=== PATIENT | male | born 1945 | race Caucasian/White ===

== ENCOUNTER → 2017-03-04 | Outpatient (CLI) | payer MEDICARE, BC ==
--- NOTE | 2017-03-04 13:24 | MR ---
EXAMINATION TYPE: MR knee RT wo con DATE OF EXAM: 03/04/2017 12:45 PM COMPARISON: None HISTORY: Right knee pain TECHNIQUE: Multiplanar, multisequence imaging of the right knee is performed without IV contrast. FINDINGS: MEDIAL MENISCUS: Complex tear posterior horn and body medial meniscus with pseudoextrusion LATERAL MENISCUS: Simple linear tear posterior horn lateral meniscus CRUCIATE LIGAMENTS: The anterior and posterior cruciate ligaments are intact and unremarkable. COLLATERAL LIGAMENTS: The medial collateral ligament and lateral collateral ligament complex are inta ct and unremarkable. EXTENSOR MECHANISM: Visualized quadriceps and patellar tendons are intact. EFFUSION: No significant suprapatellar joint effusion. POPLITEAL CYST: No popliteal/zamudio cyst. TRICOMPARTMENT SPACES: Narrowing of the joint space is seen with grade III chondromalacia involving t he patellar cartilage. No erosive changes. Hypertrophic spur involving the superior anterior margin o f the patella. BONE MARROW SIGNAL: No evidence of marrow edema or contusion. Reactive degenerative changes involving the patella. IMPRESSION: 1. Osteoarthritis with small suprapatellar or small fluid collection. 2. Complex tear posterior horn and body medial meniscus. 3. simple linear tear posterior horn lateral meniscus. 4. chondromalacia patellar cartilage
== END | disposition home or self-care (01) ==
LOC: RADMRIMAIN 12:01
PROVIDERS: ATTEND Orthopaedic Surgery
DX: S83.231A Complex tear of medial meniscus, current injury, right knee, initial encounter (principal); S83.281A Other tear of lateral meniscus, current injury, right knee, initial encounter; M17.11 Unilateral primary osteoarthritis, right knee; M22.41 Chondromalacia patellae, right knee

== ENCOUNTER 2017-05-13 07:50 | Day surgery (SDC) | payer MEDICARE, BC ==
[2017-05-11 08:48] VITALS: BMI 37.3
--- NOTE | 2017-05-12 22:41 | HP ---
DATE OF SURGERY: 05/13/2017 Fred Cabrera is a 72-year-old patient who was seen with progressive right knee pain. We discussed options. He elected to proceed with right knee arthroscopy. Consent was obtained. PAST MEDICAL HISTORY: 1. Hypertension. 2. Hyperlipidemia. 3. Benign prostate hypertrophy. PAST SURGICAL HISTORY: Carotid endarterectomy. DAILY MEDICATIONS: 1. Atenolol. 2. Lovaza. 3. Simvastatin. 4. Flomax. 5. Multivitamin. ALLERGIES: NONE. SOCIAL HISTORY: Patient denies tobacco use. PHYSICAL EVALUATION OF THE RIGHT KNEE: Range of motion is zero to 120 degrees. Tenderness along the medial joint line. Positive medial Roseann's. There is crepitus along the medial compartment with range of motion. Ligaments stable. Hip rotation without pain. Distal neurovascular exam is intact. Right knee radiographs revealed moderated osteoarthritis. MRI of the right knee revealed medial and lateral meniscal tears as well as osteoarthritis. IMPRESSION: Internal derangement, right knee, with medial and lateral meniscal tears. PLAN: Right knee arthroscopy with partial medial meniscectomy, partial lateral meniscectomy and debridement. KENNY
[~2017-05-13 07:50] MED LIST: FAMOTIDINE 20 MG/2 ML VIAL IV PRN; HYDROmorphone 1 MG/ML 1 ML SYRINGE IVP PRN; LACTATED RINGERS 1,000 ML IV SCH; LIDOCAINE 1% 20 ML VIAL (10MG/ML) FOR IV START INTRADERMA PRN; ONDANSETRON 4 MG/2 ML VIAL IVP PRN; ceFAZolin 3 GM in SODIUM CHLORIDE 0.9% 100 ML IVPB ONE
[2017-05-13] MEDS ORDERED: DEXAMETHASONE SOD PHOS (MDV) 100 MG/10 ML VIAL IVP ONE (08:43)
[2017-05-13] MEDS ORDERED: LIDOCAINE 1% INJ 10MG/ML (20 ML MDV) ONE (09:56)
[2017-05-13] MEDS ORDERED: PROPOFOL 10 MG/ML 20 ML VIAL IV ONE (09:56)
[2017-05-13] MEDS ORDERED: MIDAZOLAM 2 MG/2 ML VIAL ONE (09:56)
[2017-05-13] MEDS ORDERED: SUCCINYLCHOLINE CHLORIDE VIAL 200 MG/10 ML VIAL IV ONE (09:56)
[2017-05-13] MEDS ORDERED: fentaNYL (PF) 50 MCG/ML 2 ML AMP ONE (09:56)
[2017-05-13] MEDS ORDERED: LACTATED RINGERS 1,000 ML IV ONE (10:35)
[2017-05-13] MEDS ORDERED: BUPIVACAINE (PF) 0.25% 30 ML VIAL INTRAARTIC ONE (11:07)
--- NOTE | 2017-05-13 11:26 | P.OP ---
Date of Procedure: 05/13/17 Preoperative Diagnosis: Internal derangement right knee Postoperative Diagnosis: 1. Tear medial and lateral meniscus right knee 2. Grade 2 chondromalacia patella right knee 3. Reactive synovitis medial and suprapatellar compartments right knee Procedure(s) Performed: 1. Arthroscopic partial medial and lateral meniscectomy right knee 2. Arthroscopic chondroplasty patella right knee 3. Arthroscopic partial synovectomy medial and suprapatellar compartments right knee Implants: Anesthesia: GETA, local Surgeon: Rashi Lopez Estimated Blood Loss (ml): 10 Pathology: none sent Condition: stable Disposition: PACU Indications for Procedure: 72-year-old patient seen with progressive right knee pain. After treatment options were discussed, he elected to proceed with arthroscopy. Operative Findings: see description of procedure Description of Procedure: Patient was taken to the operative suite. Patient underwent a general anesthetic by the department of anesthesia. Patient was given preoperative antibiotics. The right lower extremity was placed in a well-padded arthroscopic leg poole. The right leg was prepped and draped in the normal sterile orthopedic fashion. A lateral parapatellar and suprapatellar incision was made. Trochars were inserted. Arthroscopy was initiated. Suprapatellar pouch revealed thick reactive synovitis. The patellofemoral joint appeared to articulate congruently. There was grade 2 chondromalacia of the patella with some osteochondral tears present. The scope was guided into the medial gutter. No loose bodies or plica were identified. The scope was then guided into the medial compartment. A medial parapatellar incision was made. Trocar inserted followed by probe. There was a complex tear involving the posterior horn medial meniscus extending into midbody. Grade 1 chondral malacia changes of the medial compartment were present no osteochondral tears evident. There was thick reactive synovitis anteriorly. A partial medial meniscectomy was performed on a stable tissue. I performed a partial synovectomy down to stable tissue. The residual meniscus was stable. Scope and probe were then guided into the intercondylar notch. Cruciates were identified, probed and found to be stable. The scope and probe were then guided into lateral compartment. There was radial tearing lateral meniscus involving the midbody area. There were grade 1 chondromalacia changes lateral compartment with no osteochondral tears present. A partial lateral meniscectomy was performed on a stable tissue. The residual meniscus was stable. The scope was in guided back into the suprapatellar compartment. I introduced a motorized shaver into the super patellar compartment. I debrided some piecemeal fragments of meniscus I encountered. I performed a chondroplasty of the patella down to stable tissue followed by partial synovectomy. The residual osteochondral surface of patella appears stable. I took one more look on the entire knee, no residual debris. Instruments were now removed from the joint. The joint was infiltrated with .25 % Marcaine. Steri-Strips were applied to the portal sites. Sterile dressings were applied. The patient was placed into a DAVEY hose. No tourniquet was utilized. The patient was awakened, transferred to a bed and taken to recovery stable satisfactory condition.
[2017-05-13 11:38] VITALS: TEMP 96.9
[2017-05-13 12:33] VITALS: RESP 18
[2017-05-13] MEDS ORDERED: HYDROcodone/APAP 7.5-325MG 1 EACH TAB PO ONE (12:47)
[2017-05-13 13:23] VITALS: BP 112/73; PULSE 71
== END 2017-05-13 13:47 | disposition home or self-care (01) ==
LOC: OR 07:50
PROVIDERS: ATTEND Orthopaedic Surgery
DX: S83.281A Other tear of lateral meniscus, current injury, right knee, initial encounter (principal); M17.11 Unilateral primary osteoarthritis, right knee; S83.241A Other tear of medial meniscus, current injury, right knee, initial encounter; M22.41 Chondromalacia patellae, right knee; I48.1 Persistent atrial fibrillation; E78.2 Mixed hyperlipidemia; I10 Essential (primary) hypertension; Z98.890 Other specified postprocedural states; M65.9 Synovitis and tenosynovitis, unspecified; N40.0 Benign prostatic hyperplasia without lower urinary tract symptoms; Z79.899 Other long term (current) drug therapy; Z79.02 Long term (current) use of antithrombotics/antiplatelets; X58.XXXA Exposure to other specified factors, initial encounter; G47.30 Sleep apnea, unspecified; Z99.89 Dependence on other enabling machines and devices; E66.9 Obesity, unspecified; Z68.39 Body mass index [BMI] 39.0-39.9, adult
CPT/HCPCS: 29880; J2250; J0330; J0690; J2405; J2001; J3010; J1170; J1100; J2704

== ENCOUNTER 2020-02-18 17:34 | Inpatient (IN) | payer MEDICARE, BC ==
[2020-02-18] MEDS ORDERED: ACETAMINOPHEN TAB 500 MG TAB PO STA (18:24)
[2020-02-18] MEDS: SODIUM CHLORIDE 0.9% 500 ML 500 ML IV SCH ×2 (18:51→19:48)
[2020-02-18 19:03] LABS: Basophils # (A) 0.1 k/uL (0-0.2); Basophils % (A) 1 %; Eosinophils # (A) 0.2 k/uL (0-0.7); Eosinophils % (A) 2 %; HCT 47.4 % (39.0-53.0); HGB 15.2 gm/dL (13.0-17.5); Lymphocytes # (A) 0.9 k/uL (1.0-4.8); Lymphocytes % (A) 6 %; MCV 96.8 fL (80.0-100.0); Mean Platelet Volume 7.6; Monocytes # (A) 0.7 k/uL (0-1.0); Monocytes % (A) 5 %; Neutrophils # (A) 12.4 k/uL (1.3-7.7); Neutrophils % (A) 85 %; Platelet Count 292 k/uL (150-450); RDW 12.9 % (11.5-15.5); WBC 14.5 k/uL (3.8-10.6)
[2020-02-18 19:07] LABS: Albumin 4.4 g/dL (3.5-5.0); Calcium 9.7 mg/dL (8.4-10.2); Partial Thromboplastin Time 23.8 sec (22.0-30.0); Potassium 4.2 mmol/L (3.5-5.1); Prothrombin Time 10.6 sec (9.0-12.0); Total Bilirubin 0.7 mg/dL (0.2-1.3); Total Protein 7.8 g/dL (6.3-8.2)
--- NOTE | 2020-02-18 19:13 | XR ---
EXAMINATION TYPE: XR chest 1V portable DATE OF EXAM: 02/18/2020 HISTORY: Shortness of breath. COMPARISON: 10/25/2015 TECHNIQUE: Single view of the chest is submitted. Examination limited by degree of inspiration. FINDINGS: Demonstrated are scattered senescent parenchymal change. There is no evidence for focal infiltrate. The heart is stable. Hilar and mediastinal structures are within normal limits. Degenerative changes are seen of the dorsal spine. IMPRESSION: 1. Chronic changes without evidence for acute pulmonary disease.
--- NOTE | 2020-02-18 19:22 | ED ---
Fever HPI - General Chief Complaint: Fever Stated Complaint: shaky Time Seen by Provider: 02/18/20 18:11 Source: patient Mode of arrival: wheelchair Limitations: no limitations - History of Present Illness Initial Comments: 74-year-old male patient presents to the emergency department today for evaluation of shaking chills. Patient states that around 3:00 this afternoon he started shaking and feeling generally weak. Patient states when symptoms persi sted he presented here for further evaluation. He did have a fever in triage, patient did not know he had a fever. Patient states that he has been having frequency and urgency to urinate. He states that he has been having accidents with urination. States he does have prostate issues and does take Flomax but has never had these types of symptoms. He denies any hematuria or dysuria. Denies nausea, vomiting, abdominal pain, flank pain. Denies any cough or congestion. Patient denies any recent rash, chest pain, diarrhea, constipation, numbness, tingling, dizziness, weakness, headache, visual changes, or any other complaints. - Related Data Home Medications Medication Instructions Recorded Confirmed Atenolol [Tenormin] 25 mg PO BID 10/25/15 05/13/17 Multivitamins, Thera [Multivitamin 1 tab PO Q48H 10/25/15 05/13/17 (formulary)] Tamsulosin HCl [Flomax] 0.4 mg PO HS 10/26/15 05/13/17 Simvastatin [Zocor] 20 mg PO HS 11/27/15 05/13/17 Fenofibrate 160 mg PO DAILY 05/11/17 05/13/17 Previous Rx's Medication Instructions Recorded Apixaban [Eliquis] 5 mg PO BID #60 tab 10/27/15 HYDROcodone/APAP 7.5-325MG [Peck 1 each PO Q6HR PRN #30 tab 05/13/17 7.5] Allergies Allergy/AdvReac Type Severity Reaction Status Date / Time No Known Allergies Allergy Verified 02/18/20 18:00 Review of Systems ROS Statement: Those systems with pertinent positive or pertinent negative responses have been documented in the HPI. ROS Other: All systems not noted in ROS Statement are negative. 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, arthroscopy lt knee Past Anesthesia/Blood Transfusion Reactions: Postoperative Nausea & Vomiting (PONV) Past Psychological History: No Psychological Hx Reported Smoking Status: Never smoker Past Alcohol Use History: None Reported Past Drug Use History: None Reported - Past Family History Father Family Medical History: Cancer Additional Family Medical History / Comment(s): COLON CANCER Mother Family Medical History: Congestive Heart Failure (CHF) Brother(s) Family Medical History: Cancer Additional Family Medical History / Comment(s): throat cancer and Alzheimer's Sister(s) Additional Family Medical History / Comment(s): Alzheimer's General Exam Limitations: no limitations General appearance: alert, in no apparent distress, other (This is a well- developed, well-nourished elderly male patient in no acute distress. Vital signs upon presentation are temperature 1-2.8F, pulse 96, respirations 18, blood pressure 145/84, pulse ox 92% on room air) ENT exam: Present: normal exam, normal oropharynx, mucous membranes moist, TM's normal bilaterally Respiratory exam: Present: normal lung sounds bilaterally. Absent: respiratory distress, wheezes, rales, rhonchi, stridor Cardiovascular Exam: Present: regular rate, normal rhythm, normal heart sounds. Absent: systolic murmur, diastolic murmur, rubs, gallop, clicks GI/Abdominal exam: Present: soft, normal bowel sounds. Absent: distended, tenderness, guarding, rebound, rigid Back exam: Absent: CVA tenderness (R), CVA tenderness (L) Neurological exam: Present: alert, oriented X3, CN II-XII intact Psychiatric exam: Present: normal affect, normal mood Skin exam: Present: warm, dry, intact, normal color. Absent: rash Course Vital Signs 02/18/20 02/18/20 17:57 19:08 Temperature 102.8 F H Pulse Rate 96 112 H Respiratory 18 18 Rate Blood Pressure 145/84 129/85 O2 Sat by Pulse 92 L 95 Oximetry Procedures - [place] Protocol (Time Out) Nurse: Devi Carmona Medical Decision Making - Medical Decision Making 74 year-old male patient presents to the emergency department today for evaluation of shaking, chills, weakness. Also reporting urinary urgency and frequency. Physical examination revealed clear equal lung sounds. Abdomen soft and nontender. No CVA tenderness. EKG showed A. fib with RVR. Labs reviewed and did reveal elevated white blood cell count of 14,000. There is evidence for urinary tract infection. Urine was sent for culture. Blood culture sent. Elevated lactic acid at 2.6. Did start Rocephin. Patient is given antipyretics. Vital signs did improve. He will be admitted to the hospital for IV antibiotics for urinary tract infection with sepsis. Did discuss all findings and results with the patient, he is agreeable with this plan. - Lab Data Result diagrams: 02/18/20 17:36 02/18/20 17:36 Lab Results 02/18/20 02/18/20 02/18/20 Range/Units 17:36 17:36 17:36 WBC 14.5 H (3.8-10.6) k/uL RBC 4.90 (4.30-5.90) m/uL Hgb 15.2 (13.0-17.5) gm/dL Hct 47.4 (39.0-53.0) % MCV 96.8 (80.0-100.0) fL MCH 31.0 (25.0-35.0) pg MCHC 32.0 (31.0-37.0) g/dL RDW 12.9 (11.5-15.5) % Plt Count 292 (150-450) k/uL Neutrophils % 85 % Lymphocytes % 6 % Monocytes % 5 % Eosinophils % 2 % Basophils % 1 % Neutrophils # 12.4 H (1.3-7.7) k/uL Lymphocytes # 0.9 L (1.0-4.8) k/uL Monocytes # 0.7 (0-1.0) k/uL Eosinophils # 0.2 (0-0.7) k/uL Basophils # 0.1 (0-0.2) k/uL PT 10.6 (9.0-12.0) sec INR 1.0 (<1.2) APTT 23.8 (22.0-30.0) sec Sodium (137-145) mmol/L Potassium (3.5-5.1) mmol/L Chloride (98-107) mmol/L Carbon Dioxide (22-30) mmol/L Anion Gap mmol/L BUN (9-20) mg/dL Creatinine (0.66-1.25) mg/dL Est GFR (CKD-EPI)AfAm (>60 ml/min/1.73 sqM) Est GFR (CKD-EPI)NonAf (>60 ml/min/1.73 sqM) Glucose (74-99) mg/dL Plasma Lactic Acid Justo (0.7-2.0) mmol/L Calcium (8.4-10.2) mg/dL Total Bilirubin (0.2-1.3) mg/dL AST (17-59) U/L ALT (4-49) U/L Alkaline Phosphatase (38-126) U/L Total Protein (6.3-8.2) g/dL Albumin (3.5-5.0) g/dL Urine Color Yellow Urine Appearance Clear (Clear) Urine pH 6.0 (5.0-8.0) Ur Specific [place] 1.016 (1.001-1.035) Urine Protein Negative (Negative) Urine Glucose (UA) Negative (Negative) Urine Ketones Negative (Negative) Urine Blood Trace H (Negative) Urine Nitrite Negative (Negative) Urine Bilirubin Negative (Negative) Urine Urobilinogen <2.0 (<2.0) mg/dL Ur Leukocyte Esterase Large H (Negative) Urine RBC 7 H (0-5) /hpf Urine WBC 94 H (0-5) /hpf Urine Mucus Rare H (None) /hpf 02/18/20 02/18/20 Range/Units 17:36 17:36 WBC (3.8-10.6) k/uL RBC (4.30-5.90) m/uL Hgb (13.0-17.5) gm/dL Hct (39.0-53.0) % MCV (80.0-100.0) fL MCH (25.0-35.0) pg MCHC (31.0-37.0) g/dL RDW (11.5-15.5) % Plt Count (150-450) k/uL Neutrophils % % Lymphocytes % % Monocytes % % Eosinophils % % Basophils % % Neutrophils # (1.3-7.7) k/uL Lymphocytes # (1.0-4.8) k/uL Monocytes # (0-1.0) k/uL Eosinophils # (0-0.7) k/uL Basophils # (0-0.2) k/uL PT (9.0-12.0) sec INR (<1.2) APTT (22.0-30.0) sec Sodium 139 (137-145) mmol/L Potassium 4.2 (3.5-5.1) mmol/L Chloride 102 (98-107) mmol/L Carbon Dioxide 27 (22-30) mmol/L Anion Gap 10 mmol/L BUN 21 H (9-20) mg/dL Creatinine 1.21 (0.66-1.25) mg/dL Est GFR (CKD-EPI)AfAm 67 (>60 ml/min/1.73 sqM) Est GFR (CKD-EPI)NonAf 58 (>60 ml/min/1.73 sqM) Glucose 100 H (74-99) mg/dL Plasma Lactic Acid Justo 2.6 H* (0.7-2.0) mmol/L Calcium 9.7 (8.4-10.2) mg/dL Total Bilirubin 0.7 (0.2-1.3) mg/dL AST 24 (17-59) U/L ALT 15 (4-49) U/L Alkaline Phosphatase 64 (38-126) U/L Total Protein 7.8 (6.3-8.2) g/dL Albumin 4.4 (3.5-5.0) g/dL Urine Color Urine Appearance (Clear) Urine pH (5.0-8.0) Ur Specific [place] (1.001-1.035) Urine Protein (Negative) Urine Glucose (UA) (Negative) Urine Ketones (Negative) Urine Blood (Negative) Urine Nitrite (Negative) Urine Bilirubin (Negative) Urine Urobilinogen (<2.0) mg/dL Ur Leukocyte Esterase (Negative) Urine RBC (0-5) /hpf Urine WBC (0-5) /hpf Urine Mucus (None) /hpf - EKG Data -: EKG Interpreted by Me EKG Comments: EKG obtained at 1851 shows atrial fibrillation with rapid ventricular response. Ventricular rate is 109, QRS duration 88, QT 318, QTC 428. No evidence of ST elevation or depression. - Radiology Data Radiology results: report reviewed, image reviewed One view x-ray of the chest is obtained. Report was reviewed in its entirety. Impression by Dr. Romeo shows chronic changes without evidence for acute pulmonary disease. Disposition Clinical Impression: Urinary tract infection, Sepsis Disposition: ADMITTED IP TO THIS [facility] Condition: Serious Referrals: Sher Klein DO [Primary Care Provider] - 1-2 days Decision to Admit Reason: Admit from EC Decision Date: 02/18/20 Decision Time: 20:10
[2020-02-18 19:27] LABS: Appearance,Urine Clear (Clear); Bilirubin,Urine Negative (Negative); Blood,Urine Trace (Negative); Color,Urine Yellow; Glucose,Urine (UA) Negative (Negative); Ketones,Urine Negative (Negative); Leukocyte Esterase,Urine Large (Negative); Mucus,Urine Rare /hpf; Nitrite,Urine Negative (Negative); Protein,Urine Negative (Negative); RBC,Urine 7 /hpf (0-5); Specific Gravity,Urine 1.016 (1.001-1.035); Urobilinogen,Urine <2.0 mg/dL (<2.0); WBC,Urine 94 /hpf (0-5)
[2020-02-18] MEDS ORDERED: ACETAMINOPHEN TAB 325 MG TAB PO PRN (20:08)
[2020-02-18] MEDS ORDERED: IBUPROFEN 600 MG TAB PO STA (20:08)
[2020-02-18] MEDS ORDERED: IBUPROFEN 400 MG TAB PO PRN (20:08)
[2020-02-18] MEDS ORDERED: SODIUM CHLORIDE 0.9% 500 ML 500 ML IV ONE (20:08)
[2020-02-18] MEDS ORDERED: NALOXONE 0.4 MG/ML 1 ML VIAL IV PRN (20:08)
[2020-02-18] MEDS: SODIUM CHLORIDE 0.9% 1,000 ML IV SCH (20:22)
[2020-02-19 06:29] LABS: Basophils % (A) 0 %; Eosinophils # (A) 0.2 k/uL (0-0.7); Eosinophils % (A) 2 %; HCT 41.9 % (39.0-53.0); HGB 13.6 gm/dL (13.0-17.5); Lymphocytes # (A) 1.2 k/uL (1.0-4.8); Lymphocytes % (A) 11 %; MCH 31.8 pg (25.0-35.0); MCHC 32.5 g/dL (31.0-37.0); MCV 98.1 fL (80.0-100.0); Mean Platelet Volume 7.7; Monocytes # (A) 0.7 k/uL (0-1.0); Monocytes % (A) 7 %; Neutrophils # (A) 8.6 k/uL (1.3-7.7); Neutrophils % (A) 79 %; Platelet Count 253 k/uL (150-450); RBC 4.28 m/uL (4.30-5.90); RDW 13.2 % (11.5-15.5)
--- NOTE | 2020-02-19 08:46 | P.HPIM ---
History of Present Illness This is a pleasant 74 years old male with past medical history of atrial fibrillation on Eliquis, sleep apnea on CPAP/BiPAP, hypertension, hyperlipidemia, benign prostatic hypertrophy. He presents because of chills of one-day duration yesterday, he didn't know he has fever, he came to the hospital. Also patient has been complaining of from increased frequency of urination but no dysuria, no suprapubic or back tenderness or pain Patient had fever on admission at 102.8, heart rate 114-125, breathing rate 20. Blood pressure 107/69. He never smoked, he denies alcohol or illicit drugs. EKG: Atrial fibrillation's with RVR at [address]-T changes. Chest x-ray: No acute process by radiologist. Patient has leukocytosis of 14.5 and 11.0 K this morning. Rest of CBC N, BMP were unremarkable, including liver enzymes, serum electrolytes and creatinine. Lactic acid was elevated 2.6K back to normal at 1.6. UA was suspicious for infection, coronavirus not detected. On admission he was started on Rocephin, got A coughing and 500 mL of normal saline bolus and started on the low side at 75 mL/h Review of Systems CONSTITUTIONAL: No fever, no malaise, no fatigue. HEENT: No recent visual problems or hearing problems. Denied any sore throat. CARDIOVASCULAR: No orthopnea, PND, no palpitations, no syncope. PULMONARY: No shortness of breath, no cough, no hemoptysis. GASTROINTESTINAL: No diarrhea, no nausea, no vomiting, no abdominal pain. Normoactive bowel sounds. NEUROLOGICAL: No headaches, no weakness, no numbness. HEMATOLOGICAL: Denies any bleeding or petechiae. GENITOURINARY: Denies any burning micturition, or urgency. MUSCULOSKELETAL/RHEUMATOLOGICAL: Denies any joint pain, swelling, or any muscle pain. ENDOCRINE: Denies any polyuria or polydipsia. 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, arthroscopy bilat knee Past Anesthesia/Blood Transfusion Reactions: Postoperative Nausea & Vomiting (PONV) Past Psychological History: No Psychological Hx Reported Smoking Status: Never smoker Past Alcohol Use History: None Reported Past Drug Use History: None Reported - Past Family History Father Family Medical History: Cancer Additional Family Medical History / Comment(s): COLON CANCER Mother Family Medical History: Congestive Heart Failure (CHF) Brother(s) Family Medical History: Cancer Additional Family Medical History / Comment(s): throat cancer and Alzheimer's Sister(s) Additional Family Medical History / Comment(s): Alzheimer's Medications and Allergies Home Medications Medication Instructions Recorded Confirmed Type Atenolol [Tenormin] 25 mg PO BID 10/25/15 02/18/20 History Tamsulosin HCl [Flomax] 0.4 mg PO HS 10/26/15 02/18/20 History Apixaban [Eliquis] 5 mg PO BID #60 tab 10/27/15 02/18/20 Rx Simvastatin [Zocor] 20 mg PO HS 11/27/15 02/18/20 History Fenofibrate 160 mg PO DAILY 05/11/17 02/18/20 History Furosemide [Lasix] 02/18/20 History Allergies Allergy/AdvReac Type Severity Reaction Status Date / Time No Known Allergies Allergy Verified 02/19/20 08:37 Physical Exam Vitals: Vital Signs Temp Pulse Pulse Resp BP BP Pulse Ox 02/19/20 04:34 97.6 F 76 16 107/69 97 02/18/20 21:37 97.5 F L 125 H 16 113/67 95 02/18/20 20:27 114 H 20 125/75 96 02/18/20 20:00 100.4 F H 112 H 20 117/69 95 02/18/20 19:08 112 H 18 129/85 95 02/18/20 17:57 102.8 F H 96 18 145/84 92 L Intake and Output 02/18/20 02/19/20 02/19/20 22:59 06:59 14:59 Other: Voiding Method Toilet Urinal # Voids 0 1 Weight 127.006 kg GENERAL: The patient is alert and oriented x3, not in any acute distress. Obese HEENT: Pupils are round and equally reacting to light. EOMI. No scleral icterus. No conjunctival pallor. Normocephalic, atraumatic. No pharyngeal erythema. No thyromegaly. CARDIOVASCULAR: S1 and S2 present. No murmurs, rubs, or gallops. PULMONARY: Chest is clear to auscultation, no wheezing or crackles. ABDOMEN: Soft, nontender, nondistended, normoactive bowel sounds. No palpable organomegaly. MUSCULOSKELETAL: No joint swelling or deformity. EXTREMITIES: No cyanosis, clubbing, or pedal edema. NEUROLOGICAL: Gross neurological examination did not reveal any focal deficits. SKIN: No rashes. No petechiae Results CBC & Chem 7: 02/19/20 05:53 02/18/20 17:36 Labs: Abnormal Lab Results - Last 24 Hours (Table) 02/18/20 02/18/20 02/18/20 Range/Units 17:36 17:36 17:36 WBC 14.5 H (3.8-10.6) k/uL RBC (4.30-5.90) m/uL Neutrophils # 12.4 H (1.3-7.7) k/uL Lymphocytes # 0.9 L (1.0-4.8) k/uL BUN 21 H (9-20) mg/dL Glucose 100 H (74-99) mg/dL Plasma Lactic Acid Justo (0.7-2.0) mmol/L Urine Blood Trace H (Negative) Ur Leukocyte Esterase Large H (Negative) Urine RBC 7 H (0-5) /hpf Urine WBC 94 H (0-5) /hpf Urine Mucus Rare H (None) /hpf 02/18/20 02/19/20 Range/Units 17:36 05:53 WBC 11.0 H (3.8-10.6) k/uL RBC 4.28 L (4.30-5.90) m/uL Neutrophils # 8.6 H (1.3-7.7) k/uL Lymphocytes # (1.0-4.8) k/uL BUN (9-20) mg/dL Glucose (74-99) mg/dL Plasma Lactic Acid Justo 2.6 H* (0.7-2.0) mmol/L Urine Blood (Negative) Ur Leukocyte Esterase (Negative) Urine RBC (0-5) /hpf Urine WBC (0-5) /hpf Urine Mucus (None) /hpf Microbiology - Last 24 Hours (Table) 02/18/20 17:36 Urine Culture - Preliminary Urine,Voided Thrombosis Risk Factor Assmnt - Choose All That Apply Each Factor Represents 1 point: Sepsis (< 1month) Other Risk Factors: Yes Each Risk Factor Represents 3 Points: Age 75 years or older Other congenital or acquired thrombophilia - If yes, enter type in comment: No Thrombosis Risk Factor Assessment Total Risk Factor Score: 4 Thrombosis Risk Factor Assessment Level: Moderate Risk Assessment and Plan Assessment: Acute urinary tract infection Possible Acute pyelonephritis Sepsis secondary to a pulseless positive SIRS criteria with fever, tachycardia and tachypnea and leukocytosis Elevated lactic acid, came back to normal Hypertension Hyperlipidemia Chronic atrial fibrillation with RVR on admission, no Eliquis Sleep apnea on CPAP/BiPAP Benign prostatic hypertrophy Plan: This is a pleasant 74 years old male who presents with UTI/pyelonephritis. Continue with antibiotic, follow-up urine culture. We'll check renal ultrasound Labs and medication were reviewed.. Continue same treatment. Continue with symptomatic treatment. Resume home medication. Monitor lytes and vitals. DVT and GI prophylaxis. Further recommendations of the clinical course of the patient DVT prophylaxis: Eliquis GI Prophylaxis: Pepcid PT/OT: Pending Prognosis is guarded
[2020-02-19] MEDS: APIXABAN 5 MG TAB PO SCH ×2 (08:53→20:25)
[2020-02-19] MEDS: FUROSEMIDE 20 MG TAB PO SCH (08:53)
[2020-02-19] MEDS: FAMOTIDINE 20 MG/2 ML VIAL IV SCH ×2 (08:53→20:25)
[2020-02-19] MEDS: ATENOLOL 25 MG TAB PO SCH ×2 (08:53→20:25)
[2020-02-19] MEDS: FENOFIBRATE 160 MG TAB PO SCH (08:53)
[2020-02-19] MEDS: SODIUM CHLORIDE 0.9% 1,000 ML IV SCH ×2 (10:52→23:34)
[2020-02-19 12:27] VITALS: RESP 18
[2020-02-19] MEDS: TAMSULOSIN 0.4 MG CAP.ER.24H PO SCH (20:25)
[2020-02-19] MEDS: ATORVASTATIN 10 MG TAB PO SCH (20:25)
--- NOTE | 2020-02-19 20:39 | US ---
EXAMINATION TYPE: US renals and bladder DATE OF EXAM: 02/19/2020 COMPARISON: NONE CLINICAL HISTORY: uti . EXAM MEASUREMENTS: Right Kidney: 10.7 x 5.6 x 5.4 cm Left Kidney: 11.0 x 5.4 x 5.4 cm Patient of large body habitus, technically limited exam. Right Kidney: No hydronephrosis or masses seen Left Kidney: No hydronephrosis, mild cortical prominence on axial images may be due to dromedary hump . Bladder: not fully distended, wnl as seen There is no evidence for hydronephrosis at this point in time. No nephrolithiasis is seen. No yoshi s are identified. Kidneys show normal cortical medullary differentiation IMPRESSION: No evident hydronephrosis. Exam is somewhat limited technically, possible prominence on the axial dina ges in the midpole the left kidney, consider follow-up.
[2020-02-20] MEDS: ATENOLOL 25 MG TAB PO SCH ×2 (09:20→20:54)
[2020-02-20] MEDS: APIXABAN 5 MG TAB PO SCH ×2 (09:20→20:54)
[2020-02-20] MEDS: FAMOTIDINE 20 MG/2 ML VIAL IV SCH (09:20)
[2020-02-20] MEDS: FENOFIBRATE 160 MG TAB PO SCH (09:20)
[2020-02-20] MEDS: FUROSEMIDE 20 MG TAB PO SCH (09:20)
[2020-02-20] MEDS: SODIUM CHLORIDE 0.9% 1,000 ML IV SCH ×2 (12:23→20:54)
[2020-02-20] MEDS: ATORVASTATIN 10 MG TAB PO SCH (20:54)
[2020-02-20] MEDS: FAMOTIDINE 20 MG TAB PO SCH (20:54)
[2020-02-20] MEDS: TAMSULOSIN 0.4 MG CAP.ER.24H PO SCH (20:54)
--- NOTE | 2020-02-20 22:16 | P.CONS ---
History of Present Illness - Reason for Consult Consult date: 02/20/20 UTI Requesting physician: Erwin E Sheet - Chief Complaint Fever x 1 day - History of Present Illness Patient is a 74-year-old male presenting to the ER at [facility] 2 days ago with chief complaints of shaking chills patient symptoms started around 3 the afternoon he presented to hospital and was feeling generalized weak patient also complaining of some urinary frequency for a day or 2 before he presented to hospital however denies having any dysuria or hematuria no suprapubic or flank pain no chest pain or shortness of breath or cough no n ausea no vomiting no URI symptoms with the symptom the patient was evaluated by the ER physician on arrival to the ER patient did have a fever of 102.18 Fahrenheit patient did have elevated to 14.5 lactic acid was 2.6 urine was positive with longstanding studies done for WBC count PCR was negative blood cultures so far pending patient has been diagnosed with a urinary tract infection he was started on Zosyn and has been admitted to hospital infectious was consulted for further recommendation about antibiotic patient did have an ultrasound of his kidneys which did not show any hydronephrosis the exam was somewhat limited. Review of Systems Positive point has been mentioned in HPI rest of the systems are negative. 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, arthroscopy bilat knee Past Anesthesia/Blood Transfusion Reactions: Postoperative Nausea & Vomiting (PONV) Past Psychological History: No Psychological Hx Reported Smoking Status: Never smoker Past Alcohol Use History: None Reported Past Drug Use History: None Reported - Past Family History Father Family Medical History: Cancer Additional Family Medical History / Comment(s): COLON CANCER Mother Family Medical History: Congestive Heart Failure (CHF) Brother(s) Family Medical History: Cancer Additional Family Medical History / Comment(s): throat cancer and Alzheimer's Sister(s) Additional Family Medical History / Comment(s): Alzheimer's Medications and Allergies Home Medications Medication Instructions Recorded Confirmed Type Atenolol [Tenormin] 25 mg PO BID 10/25/15 02/19/20 History Tamsulosin HCl [Flomax] 0.4 mg PO HS 10/26/15 02/19/20 History Apixaban [Eliquis] 5 mg PO BID #60 tab 10/27/15 02/19/20 Rx Simvastatin [Zocor] 20 mg PO HS 11/27/15 02/19/20 History Fenofibrate 160 mg PO DAILY 05/11/17 02/19/20 History Furosemide [Lasix] 20 mg PO DAILY 02/18/20 02/19/20 History Allergies Allergy/AdvReac Type Severity Reaction Status Date / Time No Known Allergies Allergy Verified 02/19/20 08:37 Physical Exam Vitals: Vital Signs Temp Pulse Resp BP Pulse Ox 02/20/20 11:51 98 F 76 18 142/88 97 02/20/20 05:00 98.1 F 95 18 150/78 95 02/19/20 23:08 18 02/19/20 21:37 100.1 F H 86 18 124/78 96 Intake and Output 02/20/20 02/20/20 02/20/20 06:59 14:59 22:59 Intake Total 500 Output Total 1000 Balance -500 Intake: Oral 500 Output: Urine 1000 Other: Voiding Method Toilet Toilet Urinal Urinal # Voids 2 GENERAL DESCRIPTION: Elderly male up in the chair, no distress. No tachypnea or accessory muscle of respiration use. HEENT: Shows Pallor , no scleral icterus. Oral mucous membrane is dry. NECK: Trachea central, no thyromegaly. LUNGS: Unlabored breathing. Clear to auscultation anteriorly. No wheeze or crackle. HEART: S1, S2, regular rate and rhythm. ABDOMEN: Soft, no tenderness , guarding or rigidity EXTREMITIES: No edema of feet. SKIN: No rash, no masses palpable. NEUROLOGICAL: The patient is awake, alert, oriented x3, mood and affect normal. Results CBC & Chem 7: 02/19/20 05:53 02/18/20 17:36 Labs: Microbiology - Last 24 Hours (Table) 02/18/20 17:36 Blood Culture - Preliminary Blood No Growth after 24 hours 02/18/20 17:36 Urine Culture - Final Urine,Voided Assessment and Plan Assessment: patient presented to the hospital with sepsis in this patient who did have a fever with rigors and chills and did have a elevated white count with a urinary symptom high clinical suspicious for a urinary tract infection and likely from enteric gram-negative pathogen patient currently with the other obvious focus of infection lungs was clear to auscultation abdominal soft and no evidence of any cellulitis. (1) Sepsis Current Visit: Yes Status: Acute Code(s): A41.9 - SEPSIS, UNSPECIFIED ORGANISM SNOMED Code(s): 43991606 (2) Urinary tract infection Current Visit: Yes Status: Acute Code(s): N39.0 - URINARY TRACT INFECTION, SITE NOT SPECIFIED SNOMED Code(s): 77430313 Plan: 1-Rocephin 1 g IV to continue 2-gentle IV fluid We will follow on clinical condition and cultures to further adjust medication if needed Thank you for this consultation we will follow the patient along with you Time with Patient: Greater than 30
[2020-02-21 05:17] VITALS: BP 128/91; PULSE 93; TEMP 98.8
[2020-02-21 07:29] LABS: Calcium 8.7 mg/dL (8.4-10.2); Potassium 4.6 mmol/L (3.5-5.1)
[2020-02-21 07:59] LABS: Basophils % (A) 0 %; Eosinophils # (A) 0.2 k/uL (0-0.7); Eosinophils % (A) 2 %; HCT 41.7 % (39.0-53.0); HGB 13.6 gm/dL (13.0-17.5); Lymphocytes # (A) 0.9 k/uL (1.0-4.8); Lymphocytes % (A) 10 %; MCH 31.7 pg (25.0-35.0); MCHC 32.6 g/dL (31.0-37.0); MCV 97.3 fL (80.0-100.0); Mean Platelet Volume 7.9; Monocytes # (A) 0.6 k/uL (0-1.0); Monocytes % (A) 7 %; Neutrophils # (A) 6.7 k/uL (1.3-7.7); Neutrophils % (A) 79 %; Platelet Count 269 k/uL (150-450); RBC 4.29 m/uL (4.30-5.90); RDW 13.2 % (11.5-15.5); WBC 8.5 k/uL (3.8-10.6)
[2020-02-21] MEDS: FUROSEMIDE 20 MG TAB PO SCH (09:07)
[2020-02-21] MEDS: ATENOLOL 25 MG TAB PO SCH (09:07)
[2020-02-21] MEDS: APIXABAN 5 MG TAB PO SCH (09:07)
[2020-02-21] MEDS: FENOFIBRATE 160 MG TAB PO SCH (09:07)
[2020-02-21] MEDS: FAMOTIDINE 20 MG TAB PO SCH (09:07)
--- NOTE | 2020-02-21 13:55 | PN ---
PROGRESS NOTE DATE OF SERVICE: 02/21/2020 REASON FOR FOLLOWUP: Urinary tract infection. INTERVAL HISTORY: The patient is currently afebrile. The patient is feeling better. Breathing comfortably. Denies having any chest pain or cough. No further rigors and chills. No abdominal pain. Still some urinary frequency, but no burning. PHYSICAL EXAMINATION: Blood pressure 128/91 with a pulse of 93, temperature 98.8. He is 97% on room air. General description is an elderly male, up in the chair in no distress. RESPIRATORY SYSTEM: Unlabored breathing, clear to auscultation anteriorly. HEART: S1, S2. Regular rate and rhythm. ABDOMEN: Soft, no tenderness. LABS: Hemoglobin is 13.8, white count 8.5, creatinine 1.14. Culture so far negative. DIAGNOSTIC IMPRESSION AND PLAN: Patient admitted to the hospital with rigors and chills and fever and urinary symptoms with concern for urinary tract infection. So far culture has been negative. Patient overall improvement on the use of Rocephin. To finish therapy short course of oral Ceftin. Prescription was sent to the pharmacy. Continue supportive care. MMODL / IJN: [id number] /
--- NOTE | 2020-02-21 14:45 | P.PN ---
Subjective Progress Note Date: 02/20/20 This is a pleasant 74 years old male with past medical history of atrial fibrillation on Eliquis, sleep apnea on CPAP/BiPAP, hypertension, hyperlipidemia, benign prostatic hypertrophy. He presents because of chills of one-day duration yesterday, he didn't know he has fever, he came to the hospital. Also patient has been complaining of from increased frequency of urination but no dysuria, no suprapubic or back tenderness or pain Patient had fever on admission at 102.8, heart rate 114-125, breathing rate 20. Blood pressure 107/69. He never smoked, he denies alcohol or illicit drugs. EKG: Atrial fibrillation's with RVR at [address]-T changes. Chest x-ray: No acute process by radiologist. Patient has leukocytosis of 14.5 and 11.0 K this morning. Rest of CBC N, BMP were unremarkable, including liver enzymes, serum electrolytes and creatinine. Lactic acid was elevated 2.6K back to normal at 1.6. UA was suspicious for infection, coronavirus not detected. On admission he was started on Rocephin, got A coughing and 500 mL of normal saline bolus and started on the low side at 75 mL/h 02/20/2020 maintained on IV fluid hydration, Rocephin. tolerating diet with no nausea vomiting or diarrhea. Denies abdominal pain, denies flank pain. Afebrile, T-max 100.1, WBC trending down to 11. Urine culture with skin and genital juan, blood culture pending. Renal ultrasound limited, reporting no evidence of hydronephrosis. Objective - Vital Signs Vital signs: Vital Signs Temp 98 F 02/20/20 11:51 Pulse 76 02/20/20 11:51 Resp 18 02/20/20 11:51 BP 142/88 02/20/20 11:51 Pulse Ox 97 02/20/20 11:51 Intake & Output 02/19/20 02/20/20 02/20/20 18:59 06:59 18:59 Intake Total 1979 1000 Output Total 1000 Balance 1979 0 Intake: Intake, IV Titration 900 Amount Sodium Chloride 0.9% 1, 900 000 ml @ 75 mls/hr IV . [id number] [facility] Rx#:[id number] Oral 1080 1000 Output: Urine 1000 Other: Voiding Method Toilet Toilet Toilet Urinal Urinal Urinal # Voids 3 1 2 - Exam GENERAL: The patient is sitting up in a chair, alert and oriented x3, not in any acute distress. HEENT: Pupils are round and equally reacting to light. EOMI. No scleral icterus. No conjunctival pallor. Normocephalic, atraumatic. No pharyngeal erythema. No thyromegaly. CARDIOVASCULAR: S1 and S2 present. No murmurs, rubs, or gallops. PULMONARY: Chest is clear to auscultation, no wheezing or crackles. ABDOMEN: Soft, nontender, nondistended, normoactive bowel sounds. No palpable organomegaly. MUSCULOSKELETAL: No joint swelling or deformity. EXTREMITIES: No cyanosis, clubbing, or pedal edema. NEUROLOGICAL: Gross neurological examination did not reveal any focal deficits. SKIN: No rashes. No petechiae - Labs CBC & Chem 7: 02/19/20 05:53 02/18/20 17:36 Labs: Microbiology - Last 24 Hours (Table) 02/18/20 17:36 Blood Culture - Preliminary Blood No Growth after 24 hours 02/18/20 17:36 Urine Culture - Final Urine,Voided Assessment and Plan Assessment: Acute urinary tract infection Possible Acute pyelonephritis Sepsis secondary to a pulseless positive SIRS criteria with fever, tachycardia and tachypnea and leukocytosis Elevated lactic acid, came back to normal Hypertension Hyperlipidemia Chronic atrial fibrillation with RVR on admission, no Eliquis Sleep apnea on CPAP/BiPAP Benign prostatic hypertrophy Plan: Continue on current medication regime ,monitoring and symptomatic treatment. Maintain gentle IV fluid hydration, IV antibiotics of Rocephin. T- max 100.1, repeat blood cultures. The impression and plan of care has been dictated as directed. : I performed a history and examination of this patient, discussed the same with the dictator. I agree with the dictator's note ,documented as a scribe. Any additional findings or plans will be noted.
--- NOTE | 2020-02-21 14:50 | P.DS ---
Providers Date of admission: 02/20/20 08:06 Expected date of discharge: 02/21/20 Attending physician: Sher Klein Consults: 02/20/20 07:42 Consult Physician Routine Consulting Provider: Linh Smith Consult Reason/Comments: uti Do you want consulting provider notified?: Yes Primary care physician: Sher Klein Hospital Course: Final Diagnoses: Sepsis secondary to Acute urinary tract infection Possible Acute pyelonephritis Lactic acidosis, resolved Hypertension Hyperlipidemia Chronic atrial fibrillation with RVR on admission, no Eliquis Sleep apnea on CPAP/BiPAP Benign prostatic hypertrophy Hospital course:This is a pleasant 74 years old male with past medical history of atrial fibrillation on Eliquis, sleep apnea on CPAP/BiPAP, hypertension, hyperlipidemia, benign prostatic hypertrophy. He presents because of chills of one-day duration yesterday, he didn't know he has fever, he came to the hospital. Also patient has been complaining of from increased frequency of urination but no dysuria, no suprapubic or back tenderness or pain Patient had fever on admission at 102.8, heart rate 114-125, breathing rate 20. Blood pressure 107/69. He never smoked, he denies alcohol or illicit drugs. EKG: Atrial fibrillation's with RVR at [address]-T changes. Chest x-ray: No acute process by radiologist. Patient has leukocytosis of 14.5 and 11.0 K this morning. Rest of CBC N, BMP were unremarkable, including liver enzymes, serum electrolytes and creatinine. Lactic acid was elevated 2.6K back to normal at 1.6. UA was suspicious for infection, coronavirus not detected. On admission he was started on Rocephin, got A coughing and 500 mL of normal saline bolus and started on the low side at 75 mL/h 02/20/2020 maintained on IV fluid hydration, Rocephin. tolerating diet with no nausea vomiting or diarrhea. Denies abdominal pain, denies flank pain. Afebrile, T-max 100.1, WBC trending down to 11. Urine culture with skin and genital juan, blood culture pending. Renal ultrasound limited, reporting no evidence of hydronephrosis. Maintained on IV antibiotics as per infectious disease. Significant clinical improvement. Patient has been cleared by infectious disease for dc. Patient is being discharged home in a stable condition with guarded prognosis. The impression and plan of care has been dictated as directed. : I performed a history and examination of this patient, discussed the same with the dictator. I agree with the dictator's note ,documented as a scribe. Any additional findings or plans will be noted. Patient Condition at Discharge: Stable Plan - Discharge Summary Discharge Rx Participant: No New Discharge Prescriptions: New Cefuroxime Axetil [Ceftin] 500 mg PO BID #14 tab Continue Atenolol [Tenormin] 25 mg PO BID Tamsulosin HCl [Flomax] 0.4 mg PO HS Apixaban [Eliquis] 5 mg PO BID #60 tab Simvastatin [Zocor] 20 mg PO HS Fenofibrate 160 mg PO DAILY Furosemide [Lasix] 20 mg PO DAILY Discharge Medication List Atenolol [Tenormin] 25 mg PO BID 10/25/15 [History] Tamsulosin HCl [Flomax] 0.4 mg PO HS 10/26/15 [History] Apixaban [Eliquis] 5 mg PO BID #60 tab 10/27/15 [Rx] Simvastatin [Zocor] 20 mg PO HS 11/27/15 [History] Fenofibrate 160 mg PO DAILY 05/11/17 [History] Furosemide [Lasix] 20 mg PO DAILY 02/18/20 [History] Cefuroxime Axetil [Ceftin] 500 mg PO BID #14 tab 02/21/20 [Rx] Follow up Appointment(s)/Referral(s): Sher Klein DO [Primary Care Provider] - 02/27/20 2:20 pm Ambulatory/Diagnostic Orders: Complete Blood Count w/diff [LAB.AMB] Time Frame: 3 Days, Location: None S elected Patient Instructions/Handouts: Cefuroxime (By mouth), Urinary Tract Infection in Men (DC), Complete Blood Count (GEN), Sepsis (GEN) Discharge Disposition: HOME SELF-CARE
== END 2020-02-21 13:22 | disposition home or self-care (01) | DRG 872 ==
LOC: EC 17:34 → 5NMEDONC 19:53 → OBSVTOIN 02-20 08:06
PROVIDERS: ADMIT Family Medicine; ATTEND Family Medicine
DX: A41.9 Sepsis, unspecified organism (principal); N10 Acute pyelonephritis; E87.2 Acidosis; I48.20 Chronic atrial fibrillation, unspecified; Z20.828 Contact with and (suspected) exposure to other viral communicable diseases; E78.5 Hyperlipidemia, unspecified; I10 Essential (primary) hypertension; G47.30 Sleep apnea, unspecified; N40.0 Benign prostatic hyperplasia without lower urinary tract symptoms; Z98.890 Other specified postprocedural states; Z79.01 Long term (current) use of anticoagulants; Z79.899 Other long term (current) drug therapy; Z80.0 Family history of malignant neoplasm of digestive organs; Z82.49 Family history of ischemic heart disease and other diseases of the circulatory system; Z80.8 Family history of malignant neoplasm of other organs or systems; Z82.0 Family history of epilepsy and other diseases of the nervous system
CPT/HCPCS: 36415; 71045; 76770; 80048; 80053; 81001; 83605; 85025; 85610; 85730; 87040; 87086; 87635; 93005; 96365; 99284

== ENCOUNTER → 2020-05-31 | Outpatient (CLI) | payer MEDICARE, BC ==
[2020-05-31 11:30] LABS: Basophils % (A) 1 %; Eosinophils # (A) 0.1 k/uL (0-0.7); Eosinophils % (A) 3 %; HCT 45.1 % (39.0-53.0); HGB 14.9 gm/dL (13.0-17.5); Lymphocytes # (A) 1.1 k/uL (1.0-4.8); Lymphocytes % (A) 22 %; MCH 32.2 pg (25.0-35.0); MCV 97.6 fL (80.0-100.0); Monocytes # (A) 0.4 k/uL (0-1.0); Monocytes % (A) 7 %; Neutrophils # (A) 3.3 k/uL (1.3-7.7); Neutrophils % (A) 64 %; Platelet Count 247 k/uL (150-450); RBC 4.62 m/uL (4.30-5.90); WBC 5.1 k/uL (3.8-10.6)
[2020-05-31 18:38] LABS: African American GFR (CKD) 67.2 (60.0-200.0); Albumin 4.2 g/dL (3.80-4.90); Albumin/Globulin Ratio 1.83 (1.60-3.17); Anion Gap 8.3 mmol/L (4.00-12.00); BUN/Creat Ratio 14.17 Ratio (12.00-20.00); Calcium 9.3 mg/dL (8.7-10.3); Carbon Dioxide 27.7 mmol/L (21.6-31.8); Chol/HDL Ratio 4.05; Globulin 2.3 g/dL (1.6-3.3); LDL Cholesterol,Calculated 106.8 mg/dL (0.0-131.0); Potassium 4.4 mmol/L (3.5-5.5); Total Bilirubin 0.8 mg/dL (0.3-1.2); Total Protein 6.5 g/dL (6.2-8.2); VLDL Calculation 27.2 mg/dL (5.00-40.00)
[2020-05-31 18:46] LABS: T4, Free (Free Thyroxine) 1.1 ng/dL (0.80-1.80)
== END | disposition home or self-care (01) ==
LOC: LABWHC1 09:28
PROVIDERS: ATTEND Family Medicine
DX: E55.9 Vitamin D deficiency, unspecified (principal); E78.5 Hyperlipidemia, unspecified; I48.91 Unspecified atrial fibrillation
CPT/HCPCS: 36415; 80053; 80061; 82306; 84439; 84443; 85025